=== PATIENT | male | born 1975 | race Caucasian/White ===

== ENCOUNTER 2024-10-06 18:35 | Emergency (ER) | payer OTHER ==
[~2024-10-06] VITALS: Ht 182.9 cm; Wt 95.3 kg
[2024-10-06 19:06] VITALS: BP 138/92; O2SAT 99
== END 2024-10-06 19:07 | disposition home or self-care (01) ==
LOC: ER 18:35
DX: S01.411D Laceration without foreign body of right cheek and temporomandibular area, subsequent encounter (principal); Z48.02 Encounter for removal of sutures; X58.XXXD Exposure to other specified factors, subsequent encounter
CPT/HCPCS: A4606; A4663